=== PATIENT | male | born 1975 | race Caucasian/White ===

== ENCOUNTER 2016-08-05 15:41 | Emergency (ER) | payer MEDICAID | END 2016-08-05 20:00 | disposition home or self-care (01) | LOC: D.ER 15:41 | DX: M54.5 Low back pain (principal); S39.012A Strain of muscle, fascia and tendon of lower back, initial encounter; X58.XXXA Exposure to other specified factors, initial encounter; Y93.89 Activity, other specified; Y92.89 Other specified places as the place of occurrence of the external cause; M62.838 Other muscle spasm; F32.9 Major depressive disorder, single episode, unspecified; F17.200 Nicotine dependence, unspecified, uncomplicated ==

== ENCOUNTER 2016-08-12 12:13 | Emergency (ER) | payer MEDICAID | END 2016-08-12 13:09 | disposition home or self-care (01) | LOC: D.ER 12:13 | DX: M54.5 Low back pain (principal); M62.838 Other muscle spasm; S39.012A Strain of muscle, fascia and tendon of lower back, initial encounter; X58.XXXA Exposure to other specified factors, initial encounter; Y93.89 Activity, other specified; Y92.89 Other specified places as the place of occurrence of the external cause; F32.9 Major depressive disorder, single episode, unspecified; F17.200 Nicotine dependence, unspecified, uncomplicated ==

== ENCOUNTER 2016-12-05 23:47 | Emergency (ER) | payer MEDICAID | END 2016-12-06 00:20 | disposition home or self-care (01) | LOC: D.ER 23:47 | DX: L03.114 Cellulitis of left upper limb (principal) ==

== ENCOUNTER 2017-01-22 00:41 | Emergency (ER) | payer MEDICAID ==
[2017-01-22 01:24] LABS: BASOPHILS 0.5 % (0-2); EOSINOPHILS 0 % (0-7); HEMATOCRIT 42.7 % (42.0-54.0); HEMOGLOBIN 15.4 g/dL (13.5-17.5); MCH 31.9 pg (26.0-34.0); MCHC 36.1 g/dL (31.0-37.0); MCV 88.4 fL (80.0-100.0); MEAN PLATELET VOLUME 10.5 fL (7.4-10.4); MONOCYTES 7.9 % (2-11); NEUTROPHILS 73.6 % (40-80); PLATELET COUNT 169 10x3/uL (130-400); RBC 4.83 10x6/uL (4.20-6.10); RDW 11.9 % (11.5-14.5); WBC 3.7 10x3/uL (4.8-10.8)
[2017-01-22 01:34] LABS: ALBUMIN 3.8 g/dL (3.4-5.0); ALKALINE PHOSPHATASE 85 U/L (46-116); ALT (SGPT) 66 U/L (10-68); AMYLASE - SERUM 17 U/L (25-115); CALC OSMOLALITY 274 mosm/kg (275-300); CALCIUM 8.8 mg/dL (8.5-10.1); CARBON DIOXIDE 28.2 mmol/L (21.0-32.0); CHLORIDE - SERUM 99 mmol/L (98-107); CREATININE - SERUM 1.1 mg/dL (0.6-1.3); GLUCOSE 141 mg/dL (74-106); LIPASE 106 U/L (73-393); POTASSIUM - SERUM 3.9 mmol/L (3.5-5.1); PROTEIN - SERUM 7.1 g/dL (6.4-8.2); SODIUM 137 mmol/L (136-145); UREA NITROGEN 9 mg/dL (7-18); eGFR NON AFRICAN AMERICAN 79 mL/min (90-120)
[2017-01-22 02:28] LABS: APPEARANCE CLEAR (CLEAR); BILIRUBIN NEGATIVE (NEGATIVE); COLOR DK YELLOW (YELLOW); GLUCOSE NEGATIVE (NEGATIVE); KETONE NEGATIVE (NEGATIVE); NITRITE NEGATIVE (NEGATIVE); PROTEIN NEGATIVE (NEGATIVE)
[2017-01-22 02:29] LABS: BACTERIA MODERATE /hpf (NONE SEEN); EPITHELIAL CELLS 0-5 /hpf (0-5); RED CELLS - URINE 0-5 /hpf (0-5); WHITE CELLS - URINE NSEEN /hpf (0-5)
[2017-01-22] MEDS ORDERED: LEXAPRO20 MG PO (20:51)
[2017-01-22] MEDS ORDERED: LAMICTAL100 MG PO (20:53)
[2017-01-22] MEDS ORDERED: HYDROCORTISONE30 G9 TOPICAL (20:53)
[2017-01-22] MEDS ORDERED: AMOXICILLIN500 M1 PO (20:54)
[2017-01-22] MEDS ORDERED: ZITHROMAX TRI-500 MG PO (20:54)
[2017-01-22] MEDS ORDERED: TAMIFLU75 MG PO (20:55)
[2017-01-22] MEDS ORDERED: ACETAMINOPHEN500 M1 PO (20:56)
[2017-01-23 10:49] VITALS: BMI 28.5
== END 2017-01-22 03:10 | disposition home or self-care (01) ==
LOC: D.ER 00:41
PROVIDERS: Family Medicine
DX: B34.9 Viral infection, unspecified (principal)

== ENCOUNTER 2017-01-22 13:50 | Inpatient (IN) | payer MEDICAID ==
[2017-01-22 16:26] LABS: ALBUMIN 3.5 g/dL (3.4-5.0); ALKALINE PHOSPHATASE 82 U/L (46-116); ALT (SGPT) 54 U/L (10-68); BILIRUBIN - TOTAL 1.75 mg/dL (0.2-1.3); CALC OSMOLALITY 269 mosm/kg (275-300); CALCIUM 8.8 mg/dL (8.5-10.1); CARBON DIOXIDE 27.7 mmol/L (21.0-32.0); CHLORIDE - SERUM 101 mmol/L (98-107); GLUCOSE 106 mg/dL (74-106); POTASSIUM - SERUM 3.9 mmol/L (3.5-5.1); PROTEIN - SERUM 6.9 g/dL (6.4-8.2); SODIUM 136 mmol/L (136-145); UREA NITROGEN 8 mg/dL (7-18); eGFR NON AFRICAN AMERICAN 88 mL/min (90-120)
[2017-01-22 16:30] LABS: BASOPHILS 0.6 % (0-2); EOSINOPHILS 0 % (0-7); HEMATOCRIT 40.5 % (42.0-54.0); HEMOGLOBIN 14.7 g/dL (13.5-17.5); IMMATURE GRANULOCYTES 0.2 % (0-5); LYMPHOCYTES 20.6 % (15-50); MCH 31.9 pg (26.0-34.0); MCHC 36.3 g/dL (31.0-37.0); MCV 87.9 fL (80.0-100.0); MEAN PLATELET VOLUME 10.5 fL (7.4-10.4); MONOCYTES 7.2 % (2-11); NEUTROPHILS 71.4 % (40-80); PLATELET COUNT 154 10x3/uL (130-400); RBC 4.61 10x6/uL (4.20-6.10); RDW 11.7 % (11.5-14.5)
[2017-01-22 16:32] LABS: WBC 5.3 10x3/uL (4.8-10.8)
[2017-01-22] MEDS ORDERED: LEXAPRO20 MG PO (20:51)
[2017-01-22] MEDS ORDERED: HYDROCORTISONE30 G9 TOPICAL (20:53)
[2017-01-22] MEDS ORDERED: LAMICTAL100 MG PO (20:53)
[2017-01-22] MEDS ORDERED: AMOXICILLIN500 M1 PO (20:54)
[2017-01-22] MEDS ORDERED: ZITHROMAX TRI-500 MG PO (20:54)
[2017-01-22] MEDS ORDERED: TAMIFLU75 MG PO (20:55)
[2017-01-22] MEDS ORDERED: ACETAMINOPHEN500 M1 PO (20:56)
[2017-01-22 23:12] VITALS: BP 126/64; BMI 28.5
[2017-01-23] VITALS: BP 108/61
[2017-01-23 04:00] VITALS: BP 111/60
--- NOTE | 2017-01-23 07:00 | NUR ---
REPORT RECIEVED, ASSUMED CARE. PATIENT IN BED WITH IV INTACT. NO COMPLAINTS AT THIS TIME. CALL LIGHT WITHIN REACH.
--- NOTE | 2017-01-23 07:45 | NUR ---
ASSESSMENT COMPLETE, VS STABLE. PATIENT HAS NO COMPLAINTS AT THIS TIME. WANTING TO KNOW WHERE RASH IS COMING FROM AND WHAT IT IS. EXPLAINED TO PATIENT THAT THE PHYSICIAN WILL KNOW MORE AND WILL TALK TO THEM WHEN HERE. VERBALIZED UNDERSTANDING. IV INTACT. CALL LIGHT WITHIN REACH.
[2017-01-23 08:01] VITALS: BP 98/57
[2017-01-23 09:33] LABS: HIV 1 & 2- RAPID SCREEN NEGATIVE (NEGATIVE)
--- NOTE | 2017-01-23 10:25 | NUR ---
PATIENT IN HALLWAY AMBULATING. STATED HE WANTED TO TALK WITH DOCTOR THAT WAS HERE [facility]. ELIUD PERKINS EXPLAINED HE WAS ALREADY GONE AT THIS TIME. WE COULD CALL THE OFFICE IF NEEDED. PATIENT VERBALIZED UNDERSTANDING. WENT BACK TO ROOM.
[2017-01-23 10:49] VITALS: BMI 28.5
[2017-01-23 12:27] VITALS: BP 110/74
--- NOTE | 2017-01-23 12:30 | NUR ---
PATIENT IN BED WITH IV INTACT. NO COMPLAINTS AT THIS TIME. CALL LIGHT WITHIN REACH.
[2017-01-23 16:04] VITALS: BP 112/69
--- NOTE | 2017-01-23 18:45 | NUR ---
PATIENT IN BED WITH IV INTACT. NO MORE COMPLAINTS OF ITCHING. STATED EYES ARE HURTING. EXPLAINED TO PATIENT THAT HIS EYE DROPS WERE ORDERED AND HE WILL GET THEM SOON THEY ARE UP FROM PHARMACY. VERBALIZED UNDERSTANDING. IV INTACT. CALL LIGHT WITHIN REACH.
[2017-01-23 20:00] VITALS: BP 107/59
[2017-01-24] VITALS: BP 106/63
--- NOTE | 2017-01-24 01:00 | NUR ---
ASSESSED AT THE BEGINNING OF THE SHIFT. PT IS ALERT AND ORIENTED, ABLE TO VERBALIZE NEEDS. HE WAS GIVEN HIS HS MEDS OF VALTREX, TORADOL, BENADRYL AND EYE DROPS AT JUST ABOUT 2000. HE WAS C/O ITCHING ALL OVER AND WE HOPED THESE MEDS WOULD HELP HE WAS ALSO BEING GIVEN ANTIBOTICS AND HAVING CULTURES DONE TO SEE WHAT WE WERE DEALING WITH. HE WAS UPSET BECAUSE WE HAD BEEN UNABLE TO TELL HIM WHAT WAS CAUSING THE BREAKING OUT. AT ABOUT 2130 HE STATED HE HAD NOT HAD ANY RELIEF WHILE STANDING INT HE HALLWAY OF HIS ISOLATION ROOM IN A BLANKET AND UNDERWARE. HE WAS TOLD WE WOULD CALL THE MD LEASE EXAMINER. AT THAT TIME WE CALL GUICHO ESTEVEZ AND HE GAVE A RESONABLE ORDER OF VISTARIL 50 MG ORAL. THE SUPERVISIOR WAS NOTIFED AND IT WAS RIGHT AT MIDNIGHT WHEN SHE WAS ABLE TO BRING IT FROM ANOTHER LOCATION. THIS WAS GIVEN TO HIM AND ONCE AGAIN WE OFFERED A SHOWER TO SEE IF IT WOULD HELP. HE REFUSED THE SHOWER AND WAS QUIETE IN HIS ROOM UNTIL ABOUT O100 HE CAME OUT OF HIS ROOM DRESSED TO LEAVE WITH NO SHOES ON AND LOOKING FOR THE EXIT. WE ASKED HIM TO PLEASE TALK AND HE REFUSED, WE ASKED HIM TO LET US TAKE THE IV OUT AND SIGN A AMA FORM. HE STORMED OFF AND WE FOLLOWED. AFTER HE GOT TO THE STREET AND STARTED DOWN [place] HE DID PULL THE IV OUT AND WITH A GLOVE FROM THE POLICE WE WERE ABLE TO DISPOSE OF IT PROPERLY. HE TOLD THE POLICE THAT HE WAS WAITING FOR HIS MOM TO PICK HIM UP. IT WAS EXPLAINED TO THE POLICE THAT HE WAS IN ISOLATION AND WE DID NOT KNOW WHAT HAD CAUSED THE SEVERE BREAK OUT YET. IN HIS ROOM WE FOUND HIS BOTTLES OF LAMICTAL AND LEXAPRO WHICH WILL BE SENT TO THE PHARMACY.
[2017-01-26 03:06] LABS: IMMUNOGLOBULIN G 835 mg/dL (700-1600); IMMUNOGLOBULIN M 68 mg/dL (20-172)
[2017-01-26 13:12] LABS: EBV - EARLY ANTIGEN AB IGG <9.0 U/mL (0.0-8.9); EBV - NUCLEAR ANTIGEN AB IGG >600.0 U/mL (0.0-17.9); EBV VIRAL CAPSID AB IGM <36.0 U/mL (0.0-35.9)
[2017-01-27 12:18] LABS: VARICELLA-ZOSTER IGM 1.51 index (0.00-0.90)
[2017-01-27 14:19] LABS: RMSF IGM 0.39 index (0.00-0.89)
[2017-01-27 14:19] LABS: EHRLICHIA CHAFF IGG Negative (Neg:<1:64); EHRLICHIA CHAFF IGM Negative (Neg:<1:20); HGE IGG TITER Negative (Neg:<1:64); HGE IGM TITER Negative (Neg:<1:20)
== END 2017-01-24 01:30 | disposition left against medical advice (07) | DRG 864 ==
LOC: D.ER 13:50 → D.MS 19:54
PROVIDERS: Emergency Medicine; Physician Assistant; Student in an Organized Health Care Education/Training Program; ADMIT Family Medicine
DX: R50.9 Fever, unspecified (principal); R21 Rash and other nonspecific skin eruption; K21.9 Gastro-esophageal reflux disease without esophagitis; F17.200 Nicotine dependence, unspecified, uncomplicated

== ENCOUNTER → 2019-08-30 09:35 | Outpatient (CLI) | payer MEDICAID ==
[~2019-08-30 09:35] MED LIST: ACETAMINOPHEN500 M1 PO; AMOXICILLIN500 M1 PO; HYDROCORTISONE30 G9 TOPICAL; LAMICTAL100 MG PO; LEXAPRO20 MG PO; TAMIFLU75 MG PO; ZITHROMAX TRI-500 MG PO
--- NOTE | 2019-09-01 08:04 | ST ---
PATIENT:RAEGAN KAHN MEDICAL RECORD: [id number] SEX: M LOCATION:[facility] ORDER #: ADMISSION DATE: 08/30/19 AGE OF PATIENT: 44 REFERRING PHYSICIAN: INTERPRETING PHYSICIAN: MARINE KRAMER MD DATE OF SERVICE: 08/30/2019 PROCEDURE: Treadmill stress test. Baseline ECG is normal. He was exercised for 10 minutes on Marco protocol. Maximum heart rate 172 beats per minute, greater than 85% max predicted. No ECG changes of ischemia. No symptoms of ischemia. Normal blood pressure response to exercise. No arrhythmias noted. Good exercise tolerance for age. TRANSINT:[id number] Voice Confirmation ID: [id number] DOCUMENT ID: [id number] MARINE KRAMER MD at 0804 CC: [id number] DICTATION DATE: 08/30/19 1628 LIGHTHOUSE KEEPER: 08/31/19 0153 DEP CLI 08/30/[address] [facility] [address] [place] [address]
--- NOTE | 2019-09-01 08:04 | EC ---
PATIENT:RAEGAN KAHN DATE OF SERVICE: 08/30/19 SEX: M MEDICAL RECORD: [id number] DATE OF : 79 LOCATION:[facility] AGE OF PATIENT: 44 ADMISSION DATE: 08/30/19 REFERRING PHYSICIAN: INTERPRETING PHYSICIAN: MARINE KRAMER MD ECHOCARDIOGRAM REPORT ECHO CHARGES 4 ECHO COMPLETE Date: 08/30/19 CLINICAL DIAGNOSIS: HEART MURMUR ECHOCARDIOGRAPHIC MEASUREMENTS (adult normal given) AC root (d.<3.7cm) 3.4 cm LV Septum d (<1.2 cm> 1.4 cm Valve Excursion 1.2 cm LV Septum (systole) 1.6 cm Left Atria (s.<4.0cm> 3.7 cm LVPW d(<1.2cm) 1.3 cm RV (d.<2.3cm) 3.9 cm LVPW (sytole) 1.5 cm LV diastole(<5.6CM) 5.4 cm MV E-F(>70mm/sec) cm LV systole 3.9 cm LVOT Diameter 2.2 cm MV exc.(>10mm) 2.4 cm Est.ejection fraction (50-75%) % DOPPLER: LVIT cm/sec A 47.0 cm/sec E 56.0 cm/sec LA cm/sec RVSP 25 mmHg LVOT 91 cm/sec AOP1/2T m/s Asc. Ao 105 cm/sec RVOT 65 cm/sec RA cm/sec PA 109 cm/sec AV Gradient Peak 4.43 mmHg AV Mean 2.33 mmHg AV Area 3.5 cm MV Gradient Peak 1.44 mmHg MV Mean 0.58 mmHg MV Area cm COMMENTS: Traffic Assistant: 2 MELQUIADES BELCHER Property Claims Adjuster: 3 Dr. Scherer TAPE# PACS Pericardial Effusion N DATE OF SERVICE: Adequate 2D, color flow imaging, spectral Doppler and M-mode. LVH is present. LV internal dimensions are normal. Wall motion is normal. EF is greater than or equal to . Aortic valve is tricuspid. No evidence of stenosis by Doppler interrogation. Left atrium is normal at 3.7 cm. Mitral valve shows no prolapse. Trace MR. Right-sided chambers are grossly normal. Trace TR. ECHOCARDIOGRAM REPORT [id number] RAEGAN KAHN TRANSINT:[id number] Voice Confirmation ID: [id number] DOCUMENT ID: [id number] MARINE KRAMER MD at 0804 CC: [id number] DICTATION DATE: 08/30/19 163 BELT BUILDER HELPER: 08/31/19 0235 DEP CLI 08/30/19 [facility] [address] [place] [id number]
== END | disposition home or self-care (01) ==
LOC: D.HCCECHO 09:35
PROVIDERS: ATTEND Internal Medicine Interventional Cardiology
DX: R07.9 Chest pain, unspecified (principal)